=== PATIENT | male | born 1950 | race Caucasian/White ===

== ENCOUNTER → 2018-01-04 | Outpatient (REF) | payer MEDICARE, OTHER ==
[2015-11-07 10:22] VITALS: BMI 34.1
[~2018-01-04] MED LIST: ALLO100T70 PO; AMLO-110 PO; AMLO-543 PO; DOCU-416 PO; FINA5TAB67 PO; GEMF600T89 PO; GLUC100026 PO; IBUP600T22 PO; MULT-1081 PO; NAPR220C12 PO; OXYC-865 PO; OXYGENHOME INH; TADA10TA14 PO; TAMS0.4C70 PO; TRIA-18 PO; TRIA1CAP81 PO
== END ==
LOC: LAB 09:05 → ZZSENDIN 09:08 → EDSTATUS 09:08
PROVIDERS: ATTEND Urology
DX: N40.1 Benign prostatic hyperplasia with lower urinary tract symptoms (principal)
CPT/HCPCS: 84153

== ENCOUNTER → 2018-01-04 | Outpatient (CLI) | payer MEDICARE, OTHER ==
[2015-11-07 10:22] VITALS: BMI 34.1
[2018-01-04 08:42] LABS: PLATELET COUNT, AUTOMATED 147 K/uL (150-450)
[2018-01-04 08:48] LABS: LDL CHOLESTEROL 75 mg/dl
== END ==
LOC: LAB 07:58
PROVIDERS: ATTEND Internal Medicine
DX: I10 Essential (primary) hypertension (principal); M10.9 Gout, unspecified; E78.5 Hyperlipidemia, unspecified; G47.33 Obstructive sleep apnea (adult) (pediatric); N40.1 Benign prostatic hyperplasia with lower urinary tract symptoms
CPT/HCPCS: 36415; 82040; 82247; 82310; 82374; 82435; 82465; 82565; 82947; 83718; 84075; 84132; 84153; 84155; 84295; 84443; 84450; 84460; 84478; 84520; 84550; 85025

== ENCOUNTER → 2018-02-23 | Outpatient (CLI) | payer MEDICARE, OTHER ==
[2015-11-07 10:22] VITALS: BMI 34.1
--- NOTE | 2018-02-23 12:01 | EKG ---
[place] [facility] [place] NAME: AIME SHEFFIELD : [id number] MR: [id number] V: [id number] EXAM DATE: ORDERING PHYSICIAN: SANDRA VEGA TECHNOLOGIST: OCTAVIO Greco Reason : IRREGULAR HB Blood Pressure : / mmHG Vent. Rate : 059 BPM Atrial Rate : 059 BPM P-R Int : 408 ms QRS Dur : 086 ms QT Int : 408 ms P-R-T Axes : 028 079 051 degrees QTc Int : 403 ms Sinus bradycardia with marked sinus arrhythmia with 1st degree AV block Otherwise normal ECG When compared with ECG of 04-NOV-2015 16:11, No significant change was found Referred By: Confirmed By:
== END ==
LOC: RESP 09:00
PROVIDERS: ATTEND Internal Medicine
DX: I44.0 Atrioventricular block, first degree (principal)

== ENCOUNTER → 2019-03-01 | Outpatient (CLI) | payer MEDICARE, OTHER ==
[2015-11-07 10:22] VITALS: BMI 34.1
[~2019-03-01] MED LIST changes: +PNEU0.5D3 IM
[2019-03-01 08:16] LABS: PLATELET COUNT, AUTOMATED 150 K/uL (150-450)
[2019-03-01 08:45] LABS: LDL CHOLESTEROL 86 mg/dl
== END ==
LOC: LAB 07:56
PROVIDERS: ATTEND Internal Medicine
DX: Z12.5 Encounter for screening for malignant neoplasm of prostate (principal); I10 Essential (primary) hypertension; M1A.09X0 Idiopathic chronic gout, multiple sites, without tophus (tophi)
CPT/HCPCS: 36415; 81001; 84443; 84550; 85025; G0103; 82040; 82247; 82310; 82374; 82435; 82465; 82565; 82947; 83718; 84075; 84132; 84153; 84155; 84295; 84450; 84460; 84478; 84520

== ENCOUNTER → 2019-03-21 | Outpatient (CLI) | payer MEDICARE, OTHER ==
[2015-11-07 10:22] VITALS: BMI 34.1
[~2019-03-21] MED LIST changes: +ATOR10TA24 PO
--- NOTE | 2019-03-21 10:36 | EKG ---
FACILITY: [facility] PATIENT NAME: AIME SHEFFIELD : [id number] MR: [id number] V: [id number] EXAM DATE: ORDERING PHYSICIAN: SANDRA VEGA TECHNOLOGIST: ISAIAH Test Reason : IRREGULAR HEART BEAT Blood Pressure : / mmHG Vent. Rate : 047 BPM Atrial Rate : 061 BPM P-R Int : 456 ms QRS Dur : 080 ms QT Int : 436 ms P-R-T Axes : 006 059 030 degrees QTc Int : 385 ms Sinus rhythm with 2nd degree AV block (Mobitz II) Septal infarct , age undetermined Abnormal ECG When compared with ECG of 23-FEB-2018 07:55, Sinus rhythm is now with 2nd degree AV block (Mobitz II) Septal infarct is now present Confirmed by SANDRA VEGA ([id number]) on 03/21/2019 2:42:15 PM Referred By: KISHAN Confirmed By:SANDRA VEGA
== END ==
LOC: RESP 10:18
PROVIDERS: ATTEND Internal Medicine
DX: Z02.9 Encounter for administrative examinations, unspecified (principal)

== ENCOUNTER → 2019-03-21 | Outpatient (CLI) | payer MEDICARE, OTHER ==
[2015-11-07 10:22] VITALS: BMI 34.1
--- NOTE | 2019-03-22 18:29 | RT HOLTER TEST ---
[facility] PATIENT NAME: AIME SHEFFIELD : [id number] MR: [id number] V: [id number] EXAM DATE: ORDERING PHYSICIAN: SANDRA VEGA TECHNOLOGIST: MARIANA Valdes-ricky date: 2019-03-21 14:07:00 Duration: 24:31:00 Test Indications: IRREGULAR HEART RATE Medications: 64252 QRS complexes 669 Ventricular ectopics which represent <1 % of total QRS comp. 37 Supraventricular ectopics which represent <1 % of total QRS comp. * Paced QRS complexes which represent % of total QRS comp. VENTRICULAR ECTOPY 644 Isolated 440 Bigeminal Cycles 11 Couplets 1 Runs 3 Beats in Runs 3 Beats LONGEST at 59 BPM at 05:36:46 2019-03-22 3 Beats FASTEST at 59 BPM at 05:36:46 2019-03-22 SUPRAVENTRICULAR ECTOPY 19 Isolated 3 Couplets 4 Runs 12 Beats in Runs 3 Beats LONGEST at 60 BPM at 01:56:28 2019-03-22 3 Beats FASTEST at 62 BPM at 02:10:45 2019-03-22 HEART RATES 34 MIN at 23:34:30 2019-03-21 62 AVG 126 MAX at 11:46:11 2019-03-22 LONGEST RR 3.056 secs at 00:31:18 2019-03-22 S-T LEVELS Channel 1 -12.800 mm MIN at 14:07:00 2019-03-21 -12.800 mm MAX at 14:07:00 2019-03-21 Channel 2 -12.800 mm MIN at 14:07:00 2019-03-21 -12.800 mm MAX at 14:07:00 2019-03-21 Channel 3 -12.800 mm MIN at 14:07:00 2019-03-21 -12.800 mm MAX at 14:07:00 2019-03-21 Sinus rhythm with complete heart block Premature ventricular complexes Confirmed by AIME MARIA ([id number]) on 03/22/2019 6:28:35 PM Referred By: Overread By: AIME MARIA
== END ==
LOC: RESP 13:46
PROVIDERS: ATTEND Internal Medicine
DX: I44.0 Atrioventricular block, first degree (principal); I49.9 Cardiac arrhythmia, unspecified; R94.31 Abnormal electrocardiogram [ECG] [EKG]
CPT/HCPCS: 93225; 93226

== ENCOUNTER → 2019-04-06 | Outpatient (CLI) | payer MEDICARE, OTHER ==
[2015-11-07 10:22] VITALS: BMI 34.1
[~2019-04-06] MED LIST changes: +ROSU5TAB8 PO
== END ==
LOC: LAB 11:03
PROVIDERS: ATTEND Internal Medicine
DX: I10 Essential (primary) hypertension (principal)
CPT/HCPCS: 36415; 82310; 82374; 82435; 82565; 82947; 83735; 84132; 84295; 84520